=== PATIENT | male | born 1960 | race Caucasian/White ===

== ENCOUNTER → 2017-03-08 13:35 | Outpatient (REF) | payer OTHER, SELFPAY ==
[2017-03-08 17:37] LABS: Amphetamine/Metha Screen,Urine Negative ng/mL (<1000); Barbiturates Screen,Urine Negative ng/mL (<200); Benzodiazepines Screen,Urine Positive ng/mL (200); Cannabinoid Screen,Urine Positive ng/mL (<50); Cocaine Screen,Urine Negative ng/g (<300); Methadone Screen,Urine Negative ng/mL (<300); Opiate Screen,Urine Negative ng/mL (<300); Phencyclidine Screen,Urine Negative ng/mL (<25)
== END ==
LOC: LAB 13:35
PROVIDERS: Visit Provider Emergency Medicine
DX: Z79.899 Other long term (current) drug therapy (principal)
CPT/HCPCS: 80305

== ENCOUNTER → 2017-06-04 15:52 | Outpatient (REF) | payer OTHER, SELFPAY ==
[2017-06-04 18:46] LABS: Basophils # 0.1 K/mm3 (0-0.2); Basophils % 0.7 % (0.1-2.0); Eosinophils # 0.2 K/mm3 (0.0-0.4); Eosinophils % 1.8 % (0.1-12.0); Hematocrit 47.8 % (42.0-52.0); Hemoglobin 15.2 g/dL (14.1-18.0); Lymphocytes # 2.6 K/mm3 (0.7-4.5); Lymphocytes % 28.1 K/mm3 (10-50); Mean Corpuscular HGB Conc 31.8 g/dL (31.8-35.4); Mean Corpuscular Volume 97.6 fl (80-94); Mean Platelet Volume 9.4 fl (7.4-10.4); Monocytes # 0.4 K/mm3 (0.1-1.0); Monocytes % 4.2 % (1.7-9.3); Neutrophils % 65.2 % (37.0-80.0); Platelet Count 289 K/mm3 (142-424); Red Blood Count 4.89 M/mm3 (4.60-6.20); Red Cell Distribution Width 12.2 % (11.5-17.5); White Blood Count 9.1 K/mm3 (4.8-10.8)
[2017-06-04 19:34] LABS: Amphetamine/Metha Screen,Urine Negative ng/mL (<1000); Barbiturates Screen,Urine Negative ng/mL (<200); Benzodiazepines Screen,Urine Positive ng/mL (200); Cannabinoid Screen,Urine Positive ng/mL (<50); Cocaine Screen,Urine Negative ng/g (<300); Methadone Screen,Urine Negative ng/mL (<300); Opiate Screen,Urine Negative ng/mL (<300); Phencyclidine Screen,Urine Negative ng/mL (<25)
[2017-06-04 19:45] LABS: Alanine Aminotransferase 30 U/L (12-78); Albumin Level 4.4 gm/dL (3.4-5.0); Albumin/Globulin Ratio 1.4 (1.1-1.8); Alkaline Phosphatase 74 U/L (46-116); Anion Gap 15.6 mEq/L (5-15); Aspartate Amino Transferase 17 U/L (15-37); Bilirubin,Total 0.3 mg/dL (0.2-1.0); Blood Urea Nitrogen 13 mg/dL (7-18); Calcium 8.7 mg/dL (8.5-10.1); Carbon Dioxide 29 mmol/L (21.0-32.0); Chloride 103 mmol/L (98-107); Chol/HDL Ratio 3.4 (1-3.5); Cholesterol 195 mg/dL (140-200); Creatinine,Serum 0.99 mg/dL (0.70-1.30); Estimated Glomerular Filt Rate 78 ml/min (>60); GFR (African American) 95 ML/MIN (>60); Globulin 3.1 gm/dl (1.3-3.2); Glucose 88 mg/dL (74-106); HDL Cholesterol 57 mg/dL (27-67); LDL Cholesterol 108 mg/dL (0-130); Potassium 4.6 mmoL/L (3.5-5.1); Sodium 143 mmol/L (136-145); Thyroid Stimulating Hormone 2.84 uIU/ml (0.358-3.740); Total Protein,Serum 7.5 gm/dL (6.4-8.2); Triglycerides 152 mg/dL (30-200); VLDL Cholesterol 30 mg/dL (0-40)
[2017-06-04 20:29] LABS: Erythrocyte Sedimentation Rate 6 mm/hr (0-20)
[2017-06-07 10:43] LABS: Vitamin D 25 Hydroxy 26.6 ng/mL (30.0-100.0)
== END ==
LOC: LAB 15:52
PROVIDERS: Visit Provider Emergency Medicine
DX: Z79.899 Other long term (current) drug therapy (principal); R53.83 Other fatigue
CPT/HCPCS: 80053; 80061; 80305; 82652; 84439; 84443; 85025; 85651

== ENCOUNTER → 2017-08-30 15:18 | Outpatient (REF) | payer OTHER, SELFPAY ==
[2017-08-30 17:38] LABS: Amphetamine/Metha Screen,Urine Negative ng/mL (<1000); Barbiturates Screen,Urine Negative ng/mL (<200); Benzodiazepines Screen,Urine Positive ng/mL (<200); Cannabinoid Screen,Urine Positive ng/mL (<50); Cocaine Screen,Urine Negative ng/mL (<300); Methadone Screen,Urine Negative ng/mL (<300); Opiate Screen,Urine Negative ng/mL (<300); Phencyclidine Screen,Urine Negative ng/mL (<25)
== END ==
LOC: LAB 15:18
PROVIDERS: Visit Provider Emergency Medicine
DX: Z79.899 Other long term (current) drug therapy (principal)
CPT/HCPCS: 80305

== ENCOUNTER → 2017-11-29 15:24 | Outpatient (CLI) | payer OTHER, SELFPAY ==
[2017-11-29 19:11] LABS: Amphetamine/Metha Screen,Urine Negative ng/mL (<1000); Barbiturates Screen,Urine Negative ng/mL (<200); Benzodiazepines Screen,Urine Positive ng/mL (<200); Cannabinoid Screen,Urine Negative ng/mL (<50); Cocaine Screen,Urine Negative ng/mL (<300); Methadone Screen,Urine Negative ng/mL (<300); Opiate Screen,Urine Negative ng/mL (<300); Phencyclidine Screen,Urine Negative ng/mL (<25)
== END ==
PROVIDERS: Emergency Medicine; Visit Provider Family Medicine
DX: Z79.899 Other long term (current) drug therapy (principal)
CPT/HCPCS: 80305

== ENCOUNTER → 2018-02-28 19:20 | Outpatient (CLI) | payer OTHER, SELFPAY ==
[2018-02-28 20:26] LABS: Amphetamine/Metha Screen,Urine Negative ng/mL (<1000); Barbiturates Screen,Urine Negative ng/mL (<200); Benzodiazepines Screen,Urine Positive ng/mL (<200); Cannabinoid Screen,Urine Negative ng/mL (<50); Cocaine Screen,Urine Negative ng/mL (<300); Methadone Screen,Urine Negative ng/mL (<300); Opiate Screen,Urine Negative ng/mL (<300); Phencyclidine Screen,Urine Negative ng/mL (<25)
== END ==
PROVIDERS: Visit Provider Emergency Medicine
DX: Z79.899 Other long term (current) drug therapy (principal)
CPT/HCPCS: 80305

== ENCOUNTER → 2018-05-28 17:00 | Outpatient (CLI) | payer OTHER, SELFPAY ==
[2018-05-28 18:37] LABS: Amphetamine/Metha Screen,Urine Negative ng/mL (<1000); Barbiturates Screen,Urine Negative ng/mL (<200); Benzodiazepines Screen,Urine Positive ng/mL (<200); Cannabinoid Screen,Urine Positive ng/mL (<50); Cocaine Screen,Urine Negative ng/mL (<300); Methadone Screen,Urine Negative ng/mL (<300); Opiate Screen,Urine Negative ng/mL (<300); Phencyclidine Screen,Urine Negative ng/mL (<25)
== END ==
PROVIDERS: Visit Provider Emergency Medicine
DX: Z79.899 Other long term (current) drug therapy (principal)
CPT/HCPCS: 80305

== ENCOUNTER → 2018-08-20 16:43 | Outpatient (CLI) | payer OTHER, SELFPAY ==
[2018-08-20 18:24] LABS: Amphetamine/Metha Screen,Urine Negative ng/mL (<1000); Barbiturates Screen,Urine Negative ng/mL (<200); Benzodiazepines Screen,Urine Positive ng/mL (<200); Cannabinoid Screen,Urine Negative ng/mL (<50); Cocaine Screen,Urine Negative ng/mL (<300); Methadone Screen,Urine Negative ng/mL (<300); Opiate Screen,Urine Negative ng/mL (<300); Phencyclidine Screen,Urine Negative ng/mL (<25)
== END ==
LOC: LAB 16:43 → LAB.DROPOF 17:19
PROVIDERS: Visit Provider Emergency Medicine
DX: Z79.899 Other long term (current) drug therapy (principal)
CPT/HCPCS: 80305

== ENCOUNTER → 2018-11-18 18:19 | Outpatient (CLI) | payer OTHER, SELFPAY ==
[2018-11-18 19:39] LABS: Basophils % 0.4 % (0.1-2.0); Eosinophils # 0.1 K/mm3 (0.0-0.4); Eosinophils % 1.8 % (0.1-12.0); Hematocrit 46.5 % (42.0-52.0); Hemoglobin 14.5 g/dL (14.1-18.0); Lymphocytes # 2.1 K/mm3 (0.7-4.5); Lymphocytes % 28.1 % (10-50); Mean Corpuscular HGB Conc 31.2 g/dL (31.8-35.4); Mean Corpuscular Hemoglobin 30.8 pg (27.0-31.2); Mean Corpuscular Volume 98.8 fl (80-94); Mean Platelet Volume 10.2 fl (7.4-10.4); Monocytes # 0.4 K/mm3 (0.1-1.0); Monocytes % 4.9 % (1.7-9.3); Neutrophils # 4.7 K/mm3 (1.8-7.8); Neutrophils % 64.7 % (37.0-80.0); Platelet Count 316 K/mm3 (142-424); Red Cell Distribution Width 13.4 % (11.5-17.5); White Blood Count 7.3 K/mm3 (4.8-10.8)
[2018-11-18 19:52] LABS: Amphetamine/Metha Screen,Urine Negative ng/mL (<1000); Barbiturates Screen,Urine Negative ng/mL (<200); Benzodiazepines Screen,Urine Positive ng/mL (<200); Cannabinoid Screen,Urine Negative ng/mL (<50); Cocaine Screen,Urine Negative ng/mL (<300); Methadone Screen,Urine Negative ng/mL (<300); Opiate Screen,Urine Negative ng/mL (<300); Phencyclidine Screen,Urine Negative ng/mL (<25)
[2018-11-18 20:06] LABS: Alanine Aminotransferase 25 U/L (12-78); Albumin Level 4.5 gm/dL (3.4-5.0); Albumin/Globulin Ratio 1.6 (1.1-1.8); Alkaline Phosphatase 70 U/L (46-116); Anion Gap 16.2 mEq/L (5-15); Aspartate Amino Transferase 18 U/L (15-37); Bilirubin,Total 0.4 mg/dL (0.2-1.0); Blood Urea Nitrogen 9 mg/dL (7-18); Calcium 8.6 mg/dL (8.5-10.1); Carbon Dioxide 26 mmol/L (21.0-32.0); Chloride 101 mmol/L (98-107); Chol/HDL Ratio 2.8 (1-3.5); Cholesterol 172 mg/dL (140-200); Creatinine,Serum 0.81 mg/dL (0.70-1.30); Estimated Glomerular Filt Rate 98 ml/min (>60); GFR (African American) 119 ML/MIN (>60); Globulin 2.9 gm/dl (1.3-3.2); Glucose 99 mg/dL (74-106); HDL Cholesterol 62 mg/dL (27-67); LDL Cholesterol 91 mg/dL (0-130); Potassium 4.2 mmoL/L (3.5-5.1); Sodium 139 mmol/L (136-145); T4 (Thyroxine) 10.8 ug/dl (4.7-13.3); Thyroid Stimulating Hormone 2.44 uIU/ml (0.358-3.740); Total Protein,Serum 7.4 gm/dL (6.4-8.2); Triglycerides 96 mg/dL (30-200); VLDL Cholesterol 19 mg/dL (0-40)
[2018-11-20 23:09] LABS: Vitamin D 25 Hydroxy 40.4 ng/mL (30.0-100.0)
== END ==
PROVIDERS: Visit Provider Emergency Medicine
DX: E66.3 Overweight (principal); Z72.0 Tobacco use; Z79.899 Other long term (current) drug therapy
CPT/HCPCS: 80053; 80061; 80305; 82652; 84436; 84443; 85025

== ENCOUNTER → 2020-03-16 14:23 | Outpatient (CLI) | payer OTHER, SELFPAY ==
[2020-03-16 15:06] LABS: Basophils # 0.1 K/mm3 (0-0.2); Basophils % 0.8 % (0.1-2.0); Eosinophils # 0.1 K/mm3 (0.0-0.4); Eosinophils % 1.6 % (0.1-12.0); Hematocrit 47.2 % (42.0-52.0); Hemoglobin 15.1 g/dL (14.1-18.0); Lymphocytes % 26.5 % (10-50); Mean Corpuscular Hemoglobin 30.6 pg (27.0-31.2); Mean Corpuscular Volume 95.7 fl (80-94); Mean Platelet Volume 9.8 fl (7.4-10.4); Monocytes # 0.3 K/mm3 (0.1-1.0); Monocytes % 4.3 % (1.7-9.3); Neutrophils # 4.9 K/mm3 (1.8-7.8); Neutrophils % 66.7 % (37.0-80.0); Platelet Count 268 K/mm3 (142-424); Red Blood Count 4.94 M/mm3 (4.60-6.20); Red Cell Distribution Width 12.7 % (11.5-17.5); White Blood Count 7.4 K/mm3 (4.8-10.8)
[2020-03-16 15:14] LABS: Amphetamine/Metha Screen,Urine Negative ng/ml (<1000)
[2020-03-16 15:15] LABS: Barbiturates Screen,Urine Negative ng/ml (<200)
[2020-03-16 15:16] LABS: Alanine Aminotransferase 32 U/L (12-78); Albumin Level 5.1 g/dl (3.5-5.0); Albumin/Globulin Ratio 1.8 (1.1-1.8); Alkaline Phosphatase 77 U/L (38-126); Anion Gap 15.2 mEq/L (5-15); Aspartate Amino Transferase 31 U/L (17-59); Benzodiazepines Screen,Urine Positive ng/ml (<200); Bilirubin,Total 0.4 mg/dl (0.2-1.3); Blood Urea Nitrogen 8 mg/dl (9-20); Calcium 9.3 mg/dl (8.4-10.2); Cannabinoid Screen,Urine Negative ng/ml (<50); Carbon Dioxide 26 mmol/L (22.0-30.0); Chloride 102 mmol/L (98-107); Chol/HDL Ratio 3.4 (1-3.5); Cholesterol 218 mg/dl (140-200); Estimated Glomerular Filt Rate 86 ml/min (>60); GFR (African American) 105 ML/MIN (>60); Globulin 2.9 g/dL (1.3-3.2); Glucose 130 mg/dl (74-100); HDL Cholesterol 64 mg/dl (40-60); Potassium 4.2 mmoL/L (3.5-5.1); Sodium 139 mmol/L (136-145); Triglycerides 92 mg/dl (30-150); VLDL Cholesterol 18 mg/dL (0-40)
[2020-03-16 15:17] LABS: Cocaine Screen,Urine Negative ng/ml (<300)
[2020-03-16 15:18] LABS: Methadone Screen,Urine Negative ng/ml (<300); Opiate Screen,Urine Negative ng/ml (<300)
[2020-03-16 15:19] LABS: Phencyclidine Screen,Urine Negative ng/ml (<25)
[2020-03-16 15:27] LABS: Direct LDL Cholesterol 123.05 mg/dL (100-129)
[2020-03-16 15:35] LABS: 25-OH Vitamin D, Total 65.1 ng/mL (30-100)
[2020-03-16 15:49] LABS: Thyroid Stimulating Hormone 3.81 uIU/mL (0.465-4.68)
== END ==
PROVIDERS: Visit Provider Emergency Medicine
DX: F41.9 Anxiety disorder, unspecified (principal); E55.9 Vitamin D deficiency, unspecified; E66.3 Overweight
CPT/HCPCS: 80053; 80061; 80305; 82306; 83036; 84439; 84443; 85025

== ENCOUNTER → 2020-06-21 13:43 | Outpatient (CLI) | payer OTHER, SELFPAY ==
[2020-06-21 14:23] LABS: Amphetamine/Metha Screen,Urine Negative ng/ml (<1000)
[2020-06-21 14:24] LABS: Barbiturates Screen,Urine Negative ng/ml (<200)
[2020-06-21 14:25] LABS: Benzodiazepines Screen,Urine Positive ng/ml (<200); Cannabinoid Screen,Urine Positive ng/ml (<50)
[2020-06-21 14:26] LABS: Cocaine Screen,Urine Negative ng/ml (<300); Methadone Screen,Urine Negative ng/ml (<300)
[2020-06-21 14:27] LABS: Opiate Screen,Urine Negative ng/ml (<300)
[2020-06-21 14:28] LABS: Phencyclidine Screen,Urine Negative ng/ml (<25)
== END ==
PROVIDERS: Visit Provider Emergency Medicine
DX: Z79.899 Other long term (current) drug therapy (principal)
CPT/HCPCS: 80305

== ENCOUNTER → 2020-09-13 18:31 | Outpatient (CLI) | payer OTHER, SELFPAY ==
[2020-09-13 19:07] LABS: Amphetamine/Metha Screen,Urine Negative ng/ml (<1000)
[2020-09-13 19:08] LABS: Barbiturates Screen,Urine Negative ng/ml (<200)
[2020-09-13 19:09] LABS: Benzodiazepines Screen,Urine Positive ng/ml (<200); Cannabinoid Screen,Urine Negative ng/ml (<50)
[2020-09-13 19:10] LABS: Cocaine Screen,Urine Negative ng/ml (<300); Methadone Screen,Urine Negative ng/ml (<300)
[2020-09-13 19:11] LABS: Opiate Screen,Urine Negative ng/ml (<300)
[2020-09-13 19:24] LABS: Phencyclidine Screen,Urine Negative ng/ml (<25)
== END ==
PROVIDERS: Visit Provider Emergency Medicine
DX: F41.9 Anxiety disorder, unspecified (principal)
CPT/HCPCS: 80305

== ENCOUNTER → 2021-01-18 18:02 | Outpatient (CLI) | payer OTHER, SELFPAY ==
[2021-01-18 18:05] LABS: Coronavirus 19, PCR Not Detected (NotDetected); Influenza A, PCR Not Detected (NotDetected); Influenza B, PCR Not Detected (NotDetected)
[2021-01-18 19:07] LABS: Amphetamine/Metha Screen,Urine Negative ng/ml (<1000)
[2021-01-18 19:11] LABS: Barbiturates Screen,Urine Negative ng/ml (<200); Benzodiazepines Screen,Urine Positive ng/ml (<200)
[2021-01-18 19:12] LABS: Cannabinoid Screen,Urine Positive ng/ml (<50); Cocaine Screen,Urine Negative ng/ml (<300)
[2021-01-18 19:13] LABS: Methadone Screen,Urine Negative ng/ml (<300)
[2021-01-18 19:14] LABS: Opiate Screen,Urine Negative ng/ml (<300); Phencyclidine Screen,Urine Negative ng/ml (<25)
== END ==
PROVIDERS: Visit Provider Emergency Medicine
DX: Z20.822 Contact with and (suspected) exposure to COVID-19 (principal); R05.9 Cough, unspecified; Z79.899 Other long term (current) drug therapy
CPT/HCPCS: 80305; C9803; U0003; U0005

== ENCOUNTER → 2021-04-28 15:25 | Outpatient (CLI) | payer OTHER, SELFPAY ==
[2021-04-28 14:58] LABS: Amphetamine/Metha Screen,Urine Negative ng/ml (<1000)
[2021-04-28 14:59] LABS: Barbiturates Screen,Urine Negative ng/ml (<200); Benzodiazepines Screen,Urine Positive ng/ml (<200)
[2021-04-28 15:00] LABS: Cannabinoid Screen,Urine Positive ng/ml (<50)
[2021-04-28 15:01] LABS: Cocaine Screen,Urine Negative ng/ml (<300); Methadone Screen,Urine Negative ng/ml (<300)
[2021-04-28 15:02] LABS: Opiate Screen,Urine Negative ng/ml (<300)
[2021-04-28 15:04] LABS: Phencyclidine Screen,Urine Negative ng/ml (<25)
== END ==
PROVIDERS: Visit Provider Emergency Medicine
DX: Z79.899 Other long term (current) drug therapy (principal)
CPT/HCPCS: 80305

== ENCOUNTER → 2021-11-28 14:37 | Outpatient (CLI) | payer OTHER, SELFPAY ==
[2021-11-28 15:15] LABS: Amphetamine/Metha Screen,Urine Negative ng/ml (<1000)
[2021-11-28 15:16] LABS: Barbiturates Screen,Urine Negative ng/ml (<200); Benzodiazepines Screen,Urine Positive ng/ml (<200)
[2021-11-28 15:17] LABS: Cannabinoid Screen,Urine Positive ng/ml (<50); Cocaine Screen,Urine Negative ng/ml (<300)
[2021-11-28 15:18] LABS: Methadone Screen,Urine Negative ng/ml (<300)
[2021-11-28 15:19] LABS: Opiate Screen,Urine Negative ng/ml (<300); Phencyclidine Screen,Urine Negative ng/ml (<25)
[2021-11-28 18:53] LABS: Basophils # 0.4 K/mm3 (0-0.2); Basophils % 2.8 % (0.1-2.0); Eosinophils # 0.1 K/mm3 (0.0-0.4); Eosinophils % 1.1 % (0.1-12.0); Hematocrit 58.6 % (42.0-52.0); Hemoglobin 15.7 g/dL (14.1-18.0); Lymphocytes # 2.7 K/mm3 (0.7-4.5); Lymphocytes % 21.4 % (10-50); Mean Corpuscular HGB Conc 26.8 g/dL (31.8-35.4); Mean Corpuscular Hemoglobin 31.1 pg (27.0-31.2); Mean Platelet Volume 24.7 fl (7.4-10.4); Monocytes # 0.7 K/mm3 (0.1-1.0); Monocytes % 5.2 % (1.7-9.3); Neutrophils # 9.2 K/mm3 (1.8-7.8); Neutrophils % 72.3 % (37.0-80.0); Platelet Count 240 K/mm3 (142-424); Red Blood Count 5.05 M/mm3 (4.60-6.20); Red Cell Distribution Width 18.9 % (11.5-17.5); White Blood Count 12.8 K/mm3 (4.8-10.8)
[2021-11-28 19:04] LABS: Alanine Aminotransferase 32 U/L (12-78); Albumin Level 4.7 g/dl (3.5-5.0); Anion Gap 17.3 mEq/L (5-15); Aspartate Amino Transferase 35 U/L (17-59); Bilirubin,Total 0.3 mg/dl (0.2-1.3); Blood Urea Nitrogen 11 mg/dl (9-20); Calcium 8.4 mg/dl (8.4-10.2); Carbon Dioxide 25 mmol/L (22.0-30.0); Chloride 102 mmol/L (98-107); Estimated Glomerular Filt Rate 86 ml/min (>60); GFR (African American) 104 ML/MIN (>60); Glucose 121 mg/dl (74-100); Potassium 4.3 mmoL/L (3.5-5.1); Sodium 140 mmol/L (136-145); Total Protein,Serum 7.4 g/dl (6.3-8.2)
[2021-11-28 19:05] LABS: Albumin/Globulin Ratio 1.7 (1.1-1.8); Alkaline Phosphatase 85 U/L (38-126); Chol/HDL Ratio 3.3 (1-3.5); Cholesterol 215 mg/dl (140-200); Globulin 2.7 g/dL (1.3-3.2); HDL Cholesterol 65 mg/dl (40-60); Triglycerides 97 mg/dl (30-150); VLDL Cholesterol 19 mg/dL (0-40)
[2021-11-28 19:16] LABS: Direct LDL Cholesterol 120.76 mg/dL (100-129)
[2021-11-28 19:23] LABS: Free T4 (Free Thyroxine) 0.98 ng/dl (0.78-2.19)
[2021-11-28 19:26] LABS: 25-OH Vitamin D, Total 62.9 ng/mL (30-100)
[2021-11-28 19:36] LABS: Prostate Specific Ag Screen 0.7 ng/ml (0.0-4.0)
== END ==
PROVIDERS: PCP Emergency Medicine; Visit Provider Emergency Medicine
DX: E55.9 Vitamin D deficiency, unspecified (principal); E66.3 Overweight; Z79.899 Other long term (current) drug therapy; Z12.5 Encounter for screening for malignant neoplasm of prostate
CPT/HCPCS: 80053; 80061; 80305; 82306; 84439; 84443; 85025; G0103

== ENCOUNTER → 2022-03-01 10:00 | Outpatient (CLI) | payer OTHER, SELFPAY ==
[2022-03-01 15:18] LABS: Amphetamine/Metha Screen,Urine Negative ng/ml (<1000); Barbiturates Screen,Urine Negative ng/ml (<200)
[2022-03-01 15:19] LABS: Benzodiazepines Screen,Urine Positive ng/ml (<200)
[2022-03-01 15:20] LABS: Cannabinoid Screen,Urine Negative ng/ml (<50); Methadone Screen,Urine Negative ng/ml (<300)
[2022-03-01 15:21] LABS: Cocaine Screen,Urine Negative ng/ml (<300)
[2022-03-01 15:22] LABS: Opiate Screen,Urine Negative ng/ml (<300)
[2022-03-01 15:23] LABS: Phencyclidine Screen,Urine Negative ng/ml (<25)
== END ==
PROVIDERS: PCP Emergency Medicine; Visit Provider Emergency Medicine
DX: Z79.899 Other long term (current) drug therapy (principal)
CPT/HCPCS: 80305

== ENCOUNTER → 2022-09-11 23:34 | Outpatient (CLI) | payer SELFPAY ==
[2022-09-11 19:46] LABS: Amphetamine/Metha Screen,Urine Negative ng/ml (<1000); Barbiturates Screen,Urine Negative ng/ml (<200)
[2022-09-11 19:47] LABS: Benzodiazepines Screen,Urine Positive ng/ml (<200)
[2022-09-11 19:48] LABS: Cannabinoid Screen,Urine Negative ng/ml (<50)
[2022-09-11 19:49] LABS: Cocaine Screen,Urine Negative ng/ml (<300); Methadone Screen,Urine Negative ng/ml (<300)
[2022-09-11 19:50] LABS: Opiate Screen,Urine Negative ng/ml (<300)
[2022-09-11 19:51] LABS: Phencyclidine Screen,Urine Negative ng/ml (<25)
== END ==
PROVIDERS: PCP Emergency Medicine; Visit Provider Emergency Medicine
DX: Z79.899 Other long term (current) drug therapy (principal)
CPT/HCPCS: 80305

== ENCOUNTER 2023-03-13 21:21 | Outpatient (CLI) | payer SELFPAY ==
[2023-03-14 01:37] LABS: Barbiturates Screen,Urine Negative ng/ml (<200)
[2023-03-14 01:38] LABS: Benzodiazepines Screen,Urine Positive ng/ml (<200)
[2023-03-14 01:39] LABS: Amphetamine/Metha Screen,Urine Negative ng/ml (<1000); Cannabinoid Screen,Urine Positive ng/ml (<50)
[2023-03-14 01:40] LABS: Cocaine Screen,Urine Negative ng/ml (<300); Methadone Screen,Urine Negative ng/ml (<300)
[2023-03-14 01:41] LABS: Opiate Screen,Urine Negative ng/ml (<300)
[2023-03-14 01:42] LABS: Phencyclidine Screen,Urine Negative ng/ml (<25)
[2023-03-20 10:13] LABS: Alprazolam Positive (.); Benzodiazepines Positive ng/mL (Cutoff=100); Clonazepam Negative (Cutoff=100); Flurazepam Negative (Cutoff=100); Lorazepam Negative (Cutoff=100); Midazolam Negative (Cutoff=100); Temazepam Negative (Cutoff=100); Triazolam Negative (Cutoff=100)
== END 2023-03-13 23:59 ==
LOC: LAB.DROPOF 21:21
PROVIDERS: PCP Nurse Practitioner Family; Visit Provider Nurse Practitioner Family
DX: Z79.899 Other long term (current) drug therapy (principal); F41.9 Anxiety disorder, unspecified
CPT/HCPCS: 80307; 80346